=== PATIENT | female | born 1970 | race Caucasian/White ===

== ENCOUNTER 2022-09-13 13:20 | Outpatient (CLI) | payer OTHER, SELFPAY ==
--- NOTE | ~2022-09-13 | US_ITS ---
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 No focal hepatic space-occup nahomi mass lesion is detected. There is normal hepatopedal flow in the portal vein. There is limited visualization of the pancreas. The gallbladder is surgically absent. The common bile duct measures 3.5 mm, normal. IMPRESSION: Cirrhosis Status post cholecystectomy Reviewed, dictated and finalized at Location [facility]. Reviewed, dictated and finalized at location B.
== END 2022-09-13 13:21 | disposition home or self-care (01) ==
PROVIDERS: PCP Emergency Medicine; Visit Provider Emergency Medicine
DX: K70.30 Alcoholic cirrhosis of liver without ascites (principal)
CPT/HCPCS: 76705

== ENCOUNTER 2024-08-05 14:03 | Outpatient (CLI) | payer OTHER, SELFPAY ==
--- NOTE | ~2024-08-05 | MM_ITS ---
EXAMINATION: MM screening [facility] BI w ulises HISTORY: Screening TECHNIQUE: Craniocaudal and mediolateral oblique 3-D tomosynthesis images were obtained and synthetic 2-D images were generated. CAD analysis was submitted and interpreted. COMPARISON: 10/01/2014 BREAST PARENCHYMAL COMPOSITION: Not dense: There are scattered areas of fibroglandular density. FINDINGS: Bilateral breast asymmetries are stable. There is no evidence of suspicious mass, calcifica tion, or architectural distortion to suggest malignancy in either breast. There has been no suspiciou s interval change. IMPRESSION: 1. No mammographic evidence of malignancy. 2. Recommend routine screening mammography in one year. BI-RADS Category 2: Benign finding(s). Reviewed, dictated and finalized at location B. LAY COORDINATOR
--- OUTSIDE RECORDS SUMMARY | 2024-08-05 14:56 | XMS_ITS | Clinical Summary ---
Author Organization [facility] Address [address] [place] [id number] Care Team Providers Care Patient Services Specialist Name Role Phone Unavailable Primary Care Provider Unavailabl e Social History Tobacco Use Types Packs/Day Years Used Date Smoking Tobacco: Never Assessed Comments Unknown Sex and Gender Information Value Date Recorded Sex Assigned at Not on file Legal Sex Female 4:32 PM CDT Gender Identity Not on file Sexual Orientation Not on file Plan of Treatment Health Maintenance Due Date Last Done Comments Cervical Cancer Screening Pa p Smear (Age 30 to 64) Every 3 Years 1968 Colorectal Cancer Screening Colonoscopy (10 Years) 1968 Annual Physical 1971 Hepatitis C 1986 DTaP, Tdap and Td Vaccines ( 1 - Tdap) 1987 Hepatitis B Vaccines (1 of 3 - 19+ 3-dose series) 1987 Cervical Cancer Screening Pa p with HPV Testing (Age 30 to 64) Every 5 Years 1998 Cervical Cancer Screening with HPV 1998 Mammogram Screening 2008 Zoster Vaccines (1 of 2) 2018 COVID-19 Vaccine (2023-2 5 season) 2024 Influenza Adult (#1) 2024 Meningococcal B Vaccine Aged Out No l onger eligible based on patient's age to complete this topic Meningococcal Vaccine Aged Out No francois chelita eligible based on patient's age to complete this topic Pneumococcal Vaccine: Pediat rics (0 to 5 Years) and At-Risk Patients (6 to 64 Years) Aged Out No longer eligible b ased on patient's age to complete this topic RSV Immunizations Under 20 Months Aged Out No longer eligible based on patient's age to complete this topic
== END 2024-08-05 14:04 | disposition home or self-care (01) ==
PROVIDERS: PCP Nurse Practitioner Family; Visit Provider Nurse Practitioner Family
DX: Z12.31 Encounter for screening mammogram for malignant neoplasm of breast (principal)
CPT/HCPCS: 77063; 77067

== ENCOUNTER 2024-09-17 00:06 | Day surgery (SDC) | payer OTHER, SELFPAY ==
[2024-09-08 10:02] VITALS: BMI 20.3
--- OUTSIDE RECORDS SUMMARY | 2024-09-17 00:09 | XMS_ITS | Clinical Summary ---
Author Organization [facility] Address [address] [place] [id number] Care Team Providers Care Blending Technician Name Role Phone Unavailable Primary Care Provider [...]
[2024-09-17 12:40] VITALS: BP 117/82; PULSE 72; RESP 20; TEMP 36.4; O2SAT 100
[2024-09-17] MEDS: LACTATED RINGERS 1,000 ML 150 ML IV CONT (12:52)
--- NOTE | 2024-09-17 13:49 | P.PNAN_ITS ---
Anes - Initial Pre Proc Eval Procedure: Operation Date: 09/17/24 13:30 Proposed Procedures p Screening Colonoscopy - Nick De Jesus MD Date/Time: 09/17/24 13:49 Surgeon: Nick De Jesus MD Pre Op Diagnosis: Screening Patient Data Age: 54 Gender: F Height: 1.7 m Weight: 59.7 kg Last Vital Signs Temp 97.5 F L 09/17/24 12:40 Pulse 72 09/17/24 12:40 Resp 20 09/17/24 12:40 BP 117/82 09/17/24 12:40 Pulse Ox 100 09/17/24 12:40 O2 Del Method Room Air 09/17/24 12:40 Allergies Allergy/AdvReac Type Severity Reaction Status Date / Time doxycycline Allergy Unknown Pt does Verified 09/17/24 12:38 not remember reaction hydrocodone Allergy Unknown Nausea Verified 09/17/24 12:38 Home Medications ?Medication ?Instructions ?Recorded ?Confirmed ?Type multivitamin 1 tablet PO DAILY 08/05/19 09/17/24 History biotin 1 mg capsule 1 mg PO DAILY 05/14/23 09/17/24 History cholecalciferol (vitamin D3) 25 25 mcg PO DAILY 05/14/23 09/17/24 History mcg (1,000 unit) capsule omega-3 fatty acids 1,000 mg 1,000 mg PO DAILY 05/14/23 09/17/24 History capsule vitamin E (dl, acetate) 45 mg (100 45 mg PO DAILY 05/14/23 09/17/24 History unit) capsule Collagen powder PO 02/20/24 07/23/24 History furosemide 40 mg tablet See Rx Instructions .Route 04/03/24 09/17/24 Rx .COMPLEX #90 tabs spironolactone 25 mg tablet See Rx Instructions .Route 07/11/24 09/17/24 Rx .COMPLEX #180 tabs tramadol 50 mg tablet 50 mg PO Q6H PRN pain #60 tabs 07/15/24 09/08/24 Rx alprazolam 0.5 mg tablet 0.5 mg PO TID #90 tabs 08/18/24 09/17/24 Rx atorvastatin 40 mg tablet See Rx Instructions .Route 09/11/24 09/17/24 Rx .COMPLEX #90 tabs escitalopram oxalate 20 mg tablet See Rx Instructions .Route 09/11/24 09/17/24 Rx .COMPLEX #90 tabs cyclobenzaprine 5 mg tablet See Rx Instructions .Route 09/15/24 09/17/24 Rx .COMPLEX #60 tabs Patient hx anesthesia problems: none Family hx anesthesia problems: none Results Review: All pre-operative results and documents have been reviewed as part of the pre- operative evaluation. [facility]LY [facility] Past Medical History Medical History Hypercalcemia Pernicious anemia Polycythemia Family History Family History Grandparent Family history of lung cancer Other Family history of chronic obstructive pulmonary disease Social History Social History Smoking packs per day: 0.25 Smoking cigarettes per day: 5.0 Smoking status: Former smoker Tobacco type: cigarettes Smoking end date: 07/26/23 Alcohol intake: former Substance use: current Substance use type: marijuana Last use: occasionally Lack of Food: Never True Current Housing: I Have Housing Concerned About Future Housing: No Difficulty Paying Gas/Electric Bills: No Difficulty Paying for Meds: No Currently Unemployed: No Education: Associate Degree Difficulty w/ Childcare or Family Care: No Living arrangements: with family Spiritual care concerns: No Anes - Eval Final PreProcedure Day of Procedure 09/17/24 13:49 Patient weight: normal Lungs: normal air movement Airway: Mallampati scale class II Neurological: alert and oriented Last oral intake: >/= 8 hours ASA classification: II Emergent: no Anesthetic plan: proceed Anesthesia type and monitoring: general GIVS and standard monitoring Results Review: All pre-operative results and documents have been reviewed as part of the pre- operative evaluation. Hyperlipidemia. Informed Consent: The patient's anesthetic plan and its attendant risks and benefits were discussed with the patient/family/POA. Questions were solicited and answers provided to the satisfaction of the patient/family/POA.
--- NOTE | 2024-09-17 13:53 | WPDANESEPPF ---
Anes - Initial Pre Proc Eval Procedure: Operation Date: 09/17/24 13:30 Proposed Procedures p Screening Colonoscopy - Nick De Jesus MD Date/Time: 09/17/24 13:53 Surgeon: Nick De Jesus MD Pre Op Diagnosis: Screening Patient Data Age: 54 Gender: F Height: 1.7 m Weight: 59.7 kg Last Vital Signs Temp 97.5 F L 09/17/24 12:40 Pulse 72 09/17/24 12:40 Resp 20 09/17/24 12:40 BP 117/82 09/17/24 12:40 Pulse Ox 100 09/17/24 12:40 O2 Del Method Room Air 09/17/24 12:40 Allergies Allergy/AdvReac Type Severity Reaction Status Date / Time doxycycline Allergy Unknown Pt does Verified 09/17/24 12:38 not remember reaction hydrocodone Allergy Unknown Nausea Verified 09/17/24 12:38 Home Medications ?Medication ?Instructions ?Recorded ?Confirmed ?Type multivitamin 1 tablet PO DAILY 08/05/19 09/17/24 History biotin 1 mg capsule 1 mg PO DAILY 05/14/23 09/17/24 History cholecalciferol (vitamin D3) 25 25 mcg PO DAILY 05/14/23 09/17/24 History mcg (1,000 unit) capsule omega-3 fatty acids 1,000 mg 1,000 mg PO DAILY 05/14/23 09/17/24 History capsule vitamin E (dl, acetate) 45 mg (100 45 mg PO DAILY 05/14/23 09/17/24 History unit) capsule Collagen powder PO 02/20/24 07/23/24 History furosemide 40 mg tablet See Rx Instructions .Route 04/03/24 09/17/24 Rx .COMPLEX #90 tabs spironolactone 25 mg tablet See Rx Instructions .Route 07/11/24 09/17/24 Rx .COMPLEX #180 tabs tramadol 50 mg tablet 50 mg PO Q6H PRN pain #60 tabs 07/15/24 09/08/24 Rx alprazolam 0.5 mg tablet 0.5 mg PO TID #90 tabs 08/18/24 09/17/24 Rx atorvastatin 40 mg tablet See Rx Instructions .Route 09/11/24 09/17/24 Rx .COMPLEX #90 tabs escitalopram oxalate 20 mg tablet See Rx Instructions .Route 09/11/24 09/17/24 Rx .COMPLEX #90 tabs cyclobenzaprine 5 mg tablet See Rx Instructions .Route 09/15/24 09/17/24 Rx .COMPLEX #60 tabs Patient hx anesthesia problems: none Family hx anesthesia problems: none Results Review: All pre-operative results and documents have been reviewed as part of the pre-operative evaluation. [facility] Past Medical History Medical History Hypercalcemia Pernicious anemia Polycythemia Family History Family History Grandparent Family history of lung cancer Other Family history of chronic obstructive pulmonary disease Social History Social History Smoking packs per day: 0.25 Smoking cigarettes per day: 5.0 Smoking status: Former smoker Tobacco type: cigarettes Smoking end date: 07/26/23 Alcohol intake: former Substance use: current Substance use type: marijuana Last use: occasionally Lack of Food: Never True Current Housing: I Have Housing Concerned About Future Housing: No Difficulty Paying Gas/Electric Bills: No Difficulty Paying for Meds: No Currently Unemployed: No Education: Associate Degree Difficulty w/ Childcare or Family Care: No Living arrangements: with family Spiritual care concerns: No Anes - Eval Final PreProcedure Day of Procedure 09/17/24 13:53 Patient weight: normal Lungs: normal air movement Airway: Mallampati scale class II Neurological: alert and oriented Last oral intake: >/= 8 hours ASA classification: II Emergent: no Anesthetic plan: proceed Anesthesia type and monitoring: general GIVS and standard monitoring Results Review: All pre-operative results and documents have been reviewed as part of the pre-operative evaluation. Hyperlipidemia. Informed Consent: The patient's anesthetic plan and its attendant risks and benefits were discussed with the patient/family/POA. Questions were solicited and answers provided to the satisfaction of the patient/family/POA.
--- NOTE | 2024-09-17 14:16 | PM.IMHP ---
H&P: HPI History of Present Illness Date/Time: 09/17/24 14:16 Chief Complaint: Screening colonoscopy Narrative: This is the patient's first colonoscopy. There are no GI symptoms and there is no family history of colorectal cancer. Review of Systems Review of Systems: All systems reviewed & are unremarkable except as noted in HPI and below PMFSH Past Medical History Medical History Hypercalcemia Pernicious anemia Polycythemia Family History Family History Grandparent Family history of lung cancer Other Family history of chronic obstructive pulmonary disease Social History Social History Smoking packs per day: 0.25 Smoking cigarettes per day: 5.0 Smoking status: Former smoker Tobacco type: cigarettes Smoking end date: 07/26/23 Alcohol intake: former Substance use: current Substance use type: marijuana Last use: occasionally Lack of Food: Never True Current Housing: I Have Housing Concerned About Future Housing: No Difficulty Paying Gas/Electric Bills: No Difficulty Paying for Meds: No Currently Unemployed: No Education: Associate Degree Difficulty w/ Childcare or Family Care: No Living arrangements: with family Spiritual care concerns: No Meds Home Medications and Allergies Home Medications ?Medication ?Instructions ?Recorded ?Confirmed ?Type multivitamin 1 tablet PO DAILY 08/05/19 09/17/24 History biotin 1 mg capsule 1 mg PO DAILY 05/14/23 09/17/24 History cholecalciferol (vitamin D3) 25 25 mcg PO DAILY 05/14/23 09/17/24 History mcg (1,000 unit) capsule omega-3 fatty acids 1,000 mg 1,000 mg PO DAILY 05/14/23 09/17/24 History capsule vitamin E (dl, acetate) 45 mg (100 45 mg PO DAILY 05/14/23 09/17/24 History unit) capsule Collagen powder PO 02/20/24 07/23/24 History furosemide 40 mg tablet See Rx Instructions .Route 04/03/24 09/17/24 Rx .COMPLEX #90 tabs spironolactone 25 mg tablet See Rx Instructions .Route 07/11/24 09/17/24 Rx .COMPLEX #180 tabs tramadol 50 mg tablet 50 mg PO Q6H PRN pain #60 tabs 07/15/24 09/08/24 Rx alprazolam 0.5 mg tablet 0.5 mg PO TID #90 tabs 08/18/24 09/17/24 Rx atorvastatin 40 mg tablet See Rx Instructions .Route 09/11/24 09/17/24 Rx .COMPLEX #90 tabs escitalopram oxalate 20 mg tablet See Rx Instructions .Route 09/11/24 09/17/24 Rx .COMPLEX #90 tabs cyclobenzaprine 5 mg tablet See Rx Instructions .Route 09/15/24 09/17/24 Rx .COMPLEX #60 tabs Allergies Allergy/AdvReac Type Severity Reaction Status Date / Time doxycycline Allergy Unknown Pt does Verified 09/17/24 12:38 not remember reaction hydrocodone Allergy Unknown Nausea Verified 09/17/24 12:38 Vital Signs Vital Signs - 24 hr 09/17/24 12:40 Temperature 97.5 F L Pulse Rate 72 Respiratory Rate 20 Blood Pressure 117/82 Pulse Oximetry 100 Oxygen Delivery Room Air Exam Const: General: cooperative and healthy appearing Resp: Effort & Inspection: normal respiratory effort and able to speak in complete sentences Auscultation: clear to auscultation bilaterally Cardio: Rate: regular rate Rhythm: regular rhythm GI: Inspection: normal to inspection GI Palp: No No hepatosplenomegaly present Auscultation: normal bowel sounds Rectal Exam: deferred Skin: General skin exam: normal color Psych: Appearance: grossly normal Mental Status: mental status grossly normal Assessment and Plan Assessment and plan (1) Screening for colon cancer: Code(s): Z12.11 - Encounter for screening for malignant neoplasm of colon Status: Acute Assessment and Plan: The patient is deemed a good candidate for the procedure. Consent signed. Will proceed.
[2024-09-17 14:51] VITALS: BP 101/50; PULSE 75; RESP 20; O2SAT 100
[2024-09-17 15:01] VITALS: BP 97/51; PULSE 72; RESP 20; O2SAT 100
[2024-09-17 15:11] VITALS: BP 120/59; PULSE 68; RESP 20; O2SAT 100
== END 2024-09-17 15:18 | disposition home or self-care (01) ==
PROVIDERS: PCP Nurse Practitioner Family; Referring Provider Nurse Practitioner Family; Visit Provider Internal Medicine Gastroenterology
PROC: 0DJD8ZZ Inspection of Lower Intestinal Tract, Via Natural or Artificial Opening Endoscopic (ICD-10-PCS; CPT 45378; principal; 2024-09-17 13:30)
DX: Z12.11 Encounter for screening for malignant neoplasm of colon (principal); E83.52 Hypercalcemia; D51.0 Vitamin B12 deficiency anemia due to intrinsic factor deficiency; D75.1 Secondary polycythemia; F12.90 Cannabis use, unspecified, uncomplicated; Z79.891 Long term (current) use of opiate analgesic; Z87.891 Personal history of nicotine dependence; Z80.1 Family history of malignant neoplasm of trachea, bronchus and lung
CPT/HCPCS: 45378; J2003; J2704; J7120